=== PATIENT | male | born 1945 | race Caucasian/White ===

== ENCOUNTER 2024-07-01 15:40 | Emergency (ER) | payer OTHER, MEDICARE ==
[~2024-07-01] VITALS: Ht 182.9 cm; Wt 82.4 kg
[~2024-07-01 15:40] MED LIST: ASPIR-LOW81 MG PO; FLOMAX0.4 MG PO; GLUCOPHAGE500 MG PO; HYDROCHLOROTHIA25 MG PO; LANTUS SOL100 UNIT/1 SUB-Q; NOVOLOG100 UNIT/2 SUB-Q; SYNTHROID100 MCG PO; VITAMIN D1000 UNI1 PO
[2024-07-01] MEDS ORDERED: LISINOPRIL10 MG PO (16:52)
[2024-07-01] MEDS ORDERED: ACETAMINOPHEN 500 MG TAB PO ONE (17:15)
[2024-07-01] MEDS ORDERED: HYDROCODON-ACE1 EA10 PO (17:48)
[2024-07-01 17:56] VITALS: BP 169/86
== END 2024-07-01 17:56 | disposition home or self-care (01) ==
LOC: ED 15:40
DX: S80.12XA Contusion of left lower leg, initial encounter (principal); V89.2XXA Person injured in unspecified motor-vehicle accident, traffic, initial encounter; I10 Essential (primary) hypertension; E11.9 Type 2 diabetes mellitus without complications; E03.9 Hypothyroidism, unspecified; E78.5 Hyperlipidemia, unspecified; Z87.891 Personal history of nicotine dependence; Z91.041 Radiographic dye allergy status; Z79.82 Long term (current) use of aspirin; Z79.4 Long term (current) use of insulin; Z79.899 Other long term (current) drug therapy; Z79.890 Hormone replacement therapy
CPT/HCPCS: 73590; 99284; A9270

== ENCOUNTER 2024-07-06 14:17 | Emergency (ER) | payer OTHER, MEDICARE ==
[~2024-07-06] VITALS: Ht 182.9 cm; Wt 84.3 kg
[~2024-07-06 14:17] MED LIST changes: +HYDROCODON-ACE1 EA10 PO; +LISINOPRIL10 MG PO
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
[2024-07-06 18:15] VITALS: BP 141/70
== END 2024-07-06 18:15 | disposition home or self-care (01) ==
LOC: ED 14:17
DX: S80.12XA Contusion of left lower leg, initial encounter (principal); V49.9XXA Car occupant (driver) (passenger) injured in unspecified traffic accident, initial encounter; I10 Essential (primary) hypertension; E11.9 Type 2 diabetes mellitus without complications; E03.9 Hypothyroidism, unspecified; E78.5 Hyperlipidemia, unspecified; Z87.891 Personal history of nicotine dependence; Z91.041 Radiographic dye allergy status; Z79.82 Long term (current) use of aspirin; Z79.4 Long term (current) use of insulin; Z79.890 Hormone replacement therapy; Z79.899 Other long term (current) drug therapy
CPT/HCPCS: 10060; 73590; 93971; 99284-25

== ENCOUNTER 2025-03-19 14:29 | Day surgery (SDC) | payer OTHER ==
[2025-02-25 09:29] VITALS: BP 160/77
[~2025-03-19] VITALS: Ht 182.9 cm; Wt 81.8 kg
[2025-03-19] VITALS (9 sets, daily range): BP systolic 122–175; BP diastolic 49–63
[2025-03-19 11:08] LABS: BILIRUBIN, URINE NEGATIVE (negative); BLOOD/HGB, URINE TRACE-L (Negative); KETONE, URINE TRACE (Negative); LEUK ESTERASE, URINE NEGATIVE (negative); NITRITE, URINE NEGATIVE (negative)
[2025-03-19 11:20] LABS: EPITHELIAL CELLS, URINE 0 /lpf (0-1+); RED BLOOD CELLS, URINE 0-1 /hpf (0-5); WHITE BLOOD CELLS, URINE 0-1 /HPF (0-5)
[2025-03-19 11:21] LABS: BACTERIA, URINE NONE SEEN /hpf (negative); CASTS, URINE NONE SEEN \\lpf; COLLECTION TYPE, URINE CLEAN CATCH; CRYSTALS, URINE NONE SEEN (0-1+); REFLEX CULTURE, URINE No (No)
[2025-03-19 11:33] LABS: BASOPHILS 0.4 % (0-2); EOSINOPHILS 2.9 % (0-6); HEMATOCRIT 41.8 % (35.0-50.0); HEMOGLOBIN 14.7 g/dL (12.0-18.0); LYMPHOCYTES 27.5 % (24-44); MCH 31.4 (27-36); MCHC 35.3 g/dl (30-36); MCV 89.1 fl (81-99); NEUTROPHILS 60.2 % (39-80); PLATELET COUNT 226 K/uL (140-440); RBC 4.69 M/ul (4.3-5.7); RDW 12.8 (10.5-15.0)
[2025-03-19 11:42] LABS: ANION GAP 9.1 (7-21); BUN/CREATININE RATIO 15.51 (6.0-28.6); CALCIUM 8.6 mg/dL (8.5-10.1); CREATININE, SERUM 1.16 mg/dL (0.70-1.30); POTASSIUM 4.1 mmol/L (3.5-5.1)
--- NOTE | 2025-03-19 13:50 | NUR ---
03/19/25 1350 Oxana Fenton 1343-PATIENT ARRIVED TO PACU ON 6L MASK NONAROUSABLE RR EVEN. SR HR 60'S IVF INFUSING. GLUCOSE CHECKED 102. NO DRAINAGE TO PENIS. CABRERA CATHETER IN PLACE CBI PINK TINGED.
--- NOTE | 2025-03-19 14:20 | NUR ---
PT ARRIVES TO [facility] ROOM. REPORT RECIEVED FROM EVA ORELLANA. PT DENIES PAIN OR NAUSEA AT THIS TIME. CBI IN PLACE, PINK DRAINAGE IN CATHETER. PT A+O X4. PT AT THE BEDSIDE. PT REQUESTS WATER AND SNACKS, GIVEN. PT STATES NO FURTHER NEEDS AT THIS TIME. PT STATES SHE HAS HIS MEDICATIONS IN HER PURSE. THIS RN EDUCATES PT AND ABOUT NOT TAKING HOME MEDICATIONS WHILE STAYING IN HOSPITAL AND IMPORTANCE OF THIS TO SAFETY. THIS RN EDUCATES ON NEEDING TO TALK TO MD AND PHARMACY AND GETTING A LABEL FOR HOME MEDICATIONS IF THEY END UP BEING NEEDED. PT AND VERBALIZE UNDERSTANDING. CALL LIGHT WITHIN REACH.
[~2025-03-19 14:29] MED LIST changes: +ACETAMINOPHEN 1,000 MG/100 ML VIAL ONE; +CARBOXYMETHYLCE15 ML OU; +CEFAZOLIN SODIUM 2 GM/20 ML SYR IV SCH; +DEXTROSE 5% 1,000 ML IV PRN; +DEXTROSE 50% 50 ML SYR IV PRN; +EZETIMIBE10 MG PO; +GLUCAGON,HUMAN RECOMBINANT 1 MG/ML VIAL SUB-Q PRN; +HYDROmorphone HCL 1 MG/ML SYR IV PRN; +IBLOOD GLUCOSE TEST STRIP 1 EA TEST VI PRN; +IBLOOD GLUCOSE TEST STRIP 1 EA TEST XX PRN; +IBLOOD GLUCOSE TEST STRIP 1 EA TEST XX SCH; +Insulin Regular, Human 100 UNIT/ML ML SUB-Q SCH; +LACTATED RINGER'S 1,000 ML IV SCH; +LIDOCAINE HCL 1% 5 ML SDV INJ ONE; +LIDOCAINE HCL 2% 5 ML SDV ONE; +OMEPRAZOLE20 MG PO; +OXYCODONE/APAP 5/325 TAB PO PRN; +PRALUENT P75 MG/1 ML SQ; +SEMGLEE (Y100 UNIT/1 SUB-Q; +diphenhydrAMINE HCL 25 MG CAP PO PRN; +ePHEDrine sulfate 50 MG/ML AMP ONE; +fentaNYL citrate 100 MCG/2 ML VIAL ONE; +ondansetron HCL 4 MG/2 ML VIAL IV PRN; +ondansetron HCL 4 MG/2 ML VIAL ONE; +propofoL 200 MG/20 ML VIAL ONE
--- NOTE | 2025-03-19 15:13 | NUR ---
INTO SEE PATIENT. PERSONAL HEALTH INFORMATION REVIEWED. PATIENT LIVES IN A HOME. NO STEPS. PATIENT LIVES WITH . NO DME. DENIES ANY DIFFCULTY PAYING BILLS OR OBTAINING FOOD. NO OTHER CM NEEDS AT THIS TIME.
[2025-03-19] MEDS ORDERED: NALOXONE HCL 0.4 MG SYR IV PRN (15:15)
[2025-03-19] MEDS ORDERED: fentaNYL citrate 50 MCG/ML SDV IV PRN (15:15)
[2025-03-19] MEDS ORDERED: SEVOFLURANE 250 ML BTL INH ONE (15:42)
[2025-03-19] MEDS ORDERED: FAMOTIDINE 20 MG TAB PO ONE (16:00)
--- NOTE | 2025-03-19 16:30 | NUR ---
URINE IN CATHETER LIGHTENING, REMAINS PINK AT THIS TIME. CBI DRIP RATE SLOWED AT THIS TIME. PT STATES NO CURRENT NEEDS, CALL LIGHT WITHIN REACH.
--- NOTE | 2025-03-19 17:25 | NUR ---
THIS RN WENT IN TO PT'S ROOM TO GIVE HIM INSULIN ORDERED. UPON ENTERING ROOM, PT WAS SWALLOWING PILLS AND STATED HE ALREADY TOOK HIS OWN 2 UNITS OF NOVOLOG. PT WAS INSTRUCTED AGAIN NOT TO TAKE HIS OWN MEDICATIONS (PT AND HIS WERE PREVIOUSLY INSTRUCTED NOT TO TAKE HIS OWN MEDS WITHOUT HAVING THEM CHECKED BY PHARMACY AND SPEAKING WITH NURSE). EDUCATED PT AND HIS REGARDING RISKS OF PT TAKING HIS OWN MEDICATIONS WITHOUT STAFF KNOWLEDGE AND HOSPITAL POLICY. PT AND HIS STATED UNDERSTANDING.
--- NOTE | 2025-03-19 19:36 | NUR ---
RECEIVED REPORT FROM EVA CLEMONS. PT RESTING IN BED, SPOUSE AT BEDSIDE. EVA HUERTA DAYSHIFT CHARGE NURSE IN TO REMIND PT & SPOUSE THAT THEY ARE NOT TO TAKE OWN HOME MEDS, AND THAT THEY SHOULD TAKE HOME MEDS HOME. PT AND SPOUSE AGREED BUT REFUSED TO ALLOW BRADLEY TO LOCK UP HOME MEDS IN LOCKBOX.
--- NOTE | 2025-03-19 20:30 | NUR ---
PT RESTING COMFORTABLY IN BED. VSS. DENIES PAIN. LSC. HRR. BTA. LBM YESTERDAY. HAS CBI INFUSING AT VERY SLOW RATE-OUTPUT LIGHT PINK. RIGHT WRIST IV INFUSING LR @ 50MLS/HR. PT CURRENTLY HAS SCD'S OFF-REPORTS LEGS WERE HOT AND SWEATY AND REQUESTED A BREAK. BG AT HS 248, PT HAPPY W/ SLIDING SCALE DOSE OF 5 UNITS. PT HAS OWN CGM AND HOSPITAL BG CLOSE TO OWN READING. CALL LIGHT WITHIN REACH.
--- NOTE | 2025-03-19 22:25 | NUR ---
P AMBULATING IN HALLS W/ SBA FROM MING GUERRERO.
--- NOTE | 2025-03-19 23:11 | NUR ---
PT BACK IN BED. CBI OUTPUT FRUIT PUNCH COLORED, CBI RATE SLIGHTLY INCREASED. REPORTS URETHRAL DISCOMFORT R/T CABRERA CATH, PRN PERCOCET ADMINISTERED PER EMAR. PT DECLINED SCD'S BEING APPLIED AT THIS TIME.
--- NOTE | 2025-03-20 00:41 | NUR ---
PT RESTING COMFORTABLY. CBI RATE SLOW, OUTPUT VERY LIGHT PINK. PT READING, REPORTS NOT FEELING TIRED.
[2025-03-20 01:42] VITALS: BP 158/65
--- NOTE | 2025-03-20 01:46 | NUR ---
PUBLIC WORKS INSPECTOR OBTAINED VITALS AND I&O. ICE WATER REFILLED. PT STATES NO FURTHER NEEDS AT THIS TIME. CALL LIGHT WITHIN REACH.
[2025-03-20 01:58] VITALS: BP 158/65
--- NOTE | 2025-03-20 01:59 | NUR ---
PT STILL AWAKE, HAS NOT SLEPT. CBI CLAMPED AT THIS TIME, URINE OUTPUT MOSTLY CLEAR. NEW BAG LR HUNG, RW IV WNL.
[2025-03-20 05:40] VITALS: BP 122/46
--- NOTE | 2025-03-20 05:40 | NUR ---
CELL PLASTERER OBTAINED VITALS AND I&O. ICE WATER REFILLED. PT STATES NO FURTHER NEEDS AT THIS TIME. CALL LIGHT WITHIN REACH.
--- NOTE | 2025-03-20 06:51 | NUR ---
PT AWAKE, REPORTS MINIMAL SLEEP. CABRERA URINE OUTPUT MOSTLY CLEAR, VERY LITTLE PINK, OUTPUT AMT 3200cc.
[2025-03-20] MEDS ORDERED: CEFTRIAXONE SODIUM 1 GM in SODIUM CHLORIDE 0.9% 100 ML IV SCH (07:00)
--- NOTE | 2025-03-20 07:30 | NUR ---
RECIEVED REPORT FROM EVA THAPA. PT LYING IN BED AWAKE, STATES NO CURRENT NEEDS, CALL LIGHT WITHIN REACH.
[2025-03-20] MEDS ORDERED: TYLENOL EXTRA500 MG PO (07:58)
[2025-03-20] MEDS ORDERED: GLUCAGON EMERGEN1 MG IM (08:03)
--- NOTE | 2025-03-20 08:04 | NUR ---
MED REC COMPLETE
[2025-03-20] MEDS ORDERED: CIPRO500 MG PO (08:12)
[2025-03-20] MEDS ORDERED: OXYCODONE HCL5 MG PO ×2 (08:13→08:15)
[2025-03-20] MEDS ORDERED: CEPHALEXIN500 M1 PO (08:15)
--- NOTE | 2025-03-20 08:20 | NUR ---
PT LYING IN BED AWAKE. PT REFUSES PO MEDICATIONS D/T WANTING TO TAKE THEM AT HOME. PT STATES HE IS LOOKING FORWARD TO GOING HOME TODAY. IV IN R WRIST INFUSING ORDERED FLUIDS, IV WNL. PT CONTINUES TO REFUSE SCDs. PT DENIES PAIN, NAUSEA, AND SOB AT THIS TIME. CABRERA CATHETER REMAINS IN PLACE, URINE CLEAR/YELLOW. PT STATES NO NEEDS AT THIS TIME, CALL LIGHT WITHIIN REACH.
[2025-03-20] MEDS ORDERED: LEVOTHYROXINE SODIUM 100 MCG TAB PO SCH (09:00)
[2025-03-20] MEDS ORDERED: hydroCHLOROthiazide 25 MG TAB PO SCH (09:00)
[2025-03-20] MEDS ORDERED: lisinopriL 10 MG TAB PO SCH (09:00)
[2025-03-20 10:34] VITALS: BP 167/54
[2025-03-20 10:35] VITALS: BP 167/54
--- NOTE | 2025-03-20 10:44 | NUR ---
DISCHARGE VITAL SIGNS WNL. DISCONTINUED IV, CATH TIP INTACT. PROVIDED DICHARGE INSTRUCTIONS AND EDUCATION. ANSWERED QUESTIONS AND CONCERNS. WAS AT THE BEDSIDE. PATIENT DEMONSTRATED CATHETER CARE, ABLE TO EMPTY INTO TOILET AND VERBALIZE ABILITY TO IDENTIFY CHANGES IN URINE AND WHEN TO SEEK MEDICAL EVALUATION. ALL PATIENTS BELONGINGS WITH . PATIENT APPEARS STEADY ON FEET, DENIES ANY NEED FOR PAIN MEDICATION. STATES, "I WILL TAKE SOME WHEN I GET HOME." PROVIDED WHEELCHAIR TO THE FRONT. TRANSFERRED WELL TO CAR.
--- NOTE | 2025-03-24 08:51 | PATH ---
[facility] [address] [place], [place] [address] Signed SPECIMEN(S): A PROSTATE CHIPS SPECIMEN SOURCE: A. PROSTATE CHIPS CLINICAL HISTORY: Pre: BPH with LUTSs. Post: TURP. FINAL PATHOLOGIC DIAGNOSIS: Prostate, transurethral resection: - Prostatic acinar adenocarcinoma, see synoptic report PROSTATE GLAND: Transurethral Prostatic Resection (TURP), Enucleation Specimen (Simple or Subtotal Prostatectomy) SPECIMEN Procedure: Transurethral resection of the prostate (TURP) TUMOR Histologic Type: Acinar adenocarcinoma, conventional (usual) Histologic Grade Grade: Grade group 1 (Newhall Score 3 + 3 = 6) Intraductal Carcinoma (IDC): Not identified Treatment Effect: No known presurgical therapy TUMOR QUANTITATION Estimated Percentage of Prostate Involved by Tumor: 1 - 5% Lymphatic and / or Vascular Invasion: Not identified Perineural Invasion: Not identified ADDITIONAL FINDINGS Additional Findings: Nodular prostatic hyperplasia COMMENT: As part of [facility]' Quality Improvement Program, this case was reviewed by another member of our pathology staff. BRP MICROSCOPIC EXAMINATION: Histologic sections of all submitted blocks are examined by light microscopy. These findings, together with the gross examination, support the pathologic diagnosis. GROSS DESCRIPTION: The specimen, labeled and designated "WesleyCathy " and designated on the requisition "prostate chips," is received in formalin is a 10 g, 6.5 x 6.0 x PATIENT NAME: CHERY MISTRY NIKKI PATHOLOGY DATE OF : 45 REPORT #: [id number] PHYSICIAN: NEDA KLEIN PCP: EDI ALAS MD REPORT IS CONFIDENTIAL AND NOT TO BE RELEASED WITHOUT AUTHORIZATION [facility] [address] [place], [place] [address] Signed 1.4 cm aggregate of pink-guerin to reno rubbery soft tissue. The specimen is entirely submitted in ([id number]). FB (under the direct supervision of a pathologist) The Gross Description was prepared using a voice recognition system. The report was reviewed for accuracy; however, sound-alike word errors, addition and/or deletions may occur. If there is any question about this report, please contact Client Services. ADDITIONAL NOTES: Immunohistochemical and/or in situ hybridization studies if performed in this case included appropriate positive controls that reacted as expected. This test was developed and its performance characteristics determined by [facility]. It has not been cleared or approved by the U.S. Food and Drug Administration. The FDA has determined that such clearance or approval is not necessary. This test is used for clinical purposes. It should not be regarded as investigational or for research. [facility] is certified under the Clinical Laboratory Improvement Amendments of 1988 (CLIA) as qualified to perform high complexity clinical laboratory testing. PERFORMING LABORATORY: Technical component was performed by [facility], [address] [place] [address] (CLIA# [id number]). Professional interpretation was performed by [facility], [address] [place] [id number] (CLIA#: [id number]). Diagnostician: Bubba Varma MD Pathologist Electronically Signed 03/24/2025 Copies: ~ PATIENT NAME: CHERY MISTRY PATHOLOGY DATE OF : 45 REPORT #: [id number] PHYSICIAN: NEDA PATHOLOGY PCP: EDI ALAS MD REPORT IS CONFIDENTIAL AND NOT TO BE RELEASED WITHOUT AUTHORIZATION
== END 2025-03-20 10:35 | disposition home or self-care (01) ==
LOC: DS 14:29 → MS 15:00 → DS 03-20 10:35
PROVIDERS: ATTEND Urology
PROC: 0VB08ZZ Excision of Prostate, Via Natural or Artificial Opening Endoscopic (ICD-10-PCS; principal; 2025-03-19 12:45)
DX: N40.1 Benign prostatic hyperplasia with lower urinary tract symptoms (principal); C61 Malignant neoplasm of prostate; E11.9 Type 2 diabetes mellitus without complications
CPT/HCPCS: 00914; 36415; 51700; 80048; 81001; 85025; 88305; 94762; 94799; 96360; 96361; 96365; 96372; C1713; C1769; J0131; J0690; J0696; J1815; J2003; J2405; J2704; J3010; J7121

== ENCOUNTER 2025-03-22 22:42 | Emergency (ER) | payer OTHER ==
[~2025-03-22] VITALS: Ht 182.9 cm; Wt 81.8 kg
[~2025-03-22 22:42] MED LIST changes: -ACETAMINOPHEN 1,000 MG/100 ML VIAL ONE; -CEFAZOLIN SODIUM 2 GM/20 ML SYR IV SCH; +CEPHALEXIN500 M1 PO; +CIPRO500 MG PO; -DEXTROSE 5% 1,000 ML IV PRN; -DEXTROSE 50% 50 ML SYR IV PRN; +GLUCAGON EMERGEN1 MG IM; -GLUCAGON,HUMAN RECOMBINANT 1 MG/ML VIAL SUB-Q PRN; -HYDROmorphone HCL 1 MG/ML SYR IV PRN; -IBLOOD GLUCOSE TEST STRIP 1 EA TEST VI PRN; -IBLOOD GLUCOSE TEST STRIP 1 EA TEST XX PRN; -IBLOOD GLUCOSE TEST STRIP 1 EA TEST XX SCH; -Insulin Regular, Human 100 UNIT/ML ML SUB-Q SCH; -LACTATED RINGER'S 1,000 ML IV SCH; -LIDOCAINE HCL 1% 5 ML SDV INJ ONE; -LIDOCAINE HCL 2% 5 ML SDV ONE; +OXYCODONE HCL5 MG PO; -OXYCODONE/APAP 5/325 TAB PO PRN; +TYLENOL EXTRA500 MG PO; -diphenhydrAMINE HCL 25 MG CAP PO PRN; -ePHEDrine sulfate 50 MG/ML AMP ONE; -fentaNYL citrate 100 MCG/2 ML VIAL ONE; -ondansetron HCL 4 MG/2 ML VIAL IV PRN; -ondansetron HCL 4 MG/2 ML VIAL ONE; -propofoL 200 MG/20 ML VIAL ONE
[2025-03-22 23:33] LABS: BASOPHILS 0.3 % (0-2); EOSINOPHILS 4.3 % (0-6); HEMOGLOBIN 14.8 g/dL (12.0-18.0); LYMPHOCYTES 25.1 % (24-44); MCH 31.6 (27-36); MCHC 36.1 g/dl (30-36); MCV 87.5 fl (81-99); MONOCYTES 9.4 % (0-12); NEUTROPHILS 60.9 % (39-80); PLATELET COUNT 220 K/uL (140-440); RBC 4.69 M/ul (4.3-5.7); RDW 12.9 (10.5-15.0)
[2025-03-22] MEDS ORDERED: METOPROLOL TARTRATE 5 MG/5 ML VIAL IV ONE (23:45)
[2025-03-22 23:50] LABS: ALBUMIN 3.7 g/dL (3.4-5.0); ALBUMIN/GLOBULIN RATIO 1.03 (1.1-2.4); ANION GAP 11.7 (7-21); BILIRUBIN, TOTAL 0.9 mg/dL (0.2-1.0); BUN/CREATININE RATIO 15.05 (6.0-28.6); CALCIUM 8.8 mg/dL (8.5-10.1); CREATININE, SERUM 0.93 mg/dL (0.70-1.30); POTASSIUM 3.7 mmol/L (3.5-5.1); PROTEIN, TOTAL 7.3 g/dL (6.4-8.2)
[2025-03-23 00:04] LABS: BILIRUBIN, URINE NEGATIVE (negative); BLOOD/HGB, URINE LARGE (Negative); KETONE, URINE TRACE (Negative); LEUK ESTERASE, URINE TRACE (negative); NITRITE, URINE NEGATIVE (negative)
[2025-03-23 00:10] LABS: RED BLOOD CELLS, URINE 21-40 /hpf (0-5)
[2025-03-23 00:11] LABS: BACTERIA, URINE RARE /hpf (negative); CASTS, URINE NONE SEEN \\lpf; COLLECTION TYPE, URINE CLEAN CATCH; CRYSTALS, URINE NONE SEEN (0-1+); EPITHELIAL CELLS, URINE NONE SEEN /lpf (0-1+); REFLEX CULTURE, URINE Yes (No)
[2025-03-23 01:07] VITALS: BP 150/72
--- NOTE | 2025-03-25 07:45 | EKG ---
[facility] [address] [facility] [place] [address] Signed Normal sinus rhythm Borderline ECG When compared with ECG of 25-FEB-2025 08:34, No significant change was found Confirmed by Agustin Contreras MD ([id number]) on 03/25/2025 7:44:44 AM Electronically Signed By: AGUSTIN CONTRERAS MD 03/25/25 0745 PATIENT NAME: CHERY MISTRY NIKKI Electrocardiogram DATE OF : 45 PHYSICIAN: AGUSTIN CONTRERAS MD REPORT #: [id number] REPORT IS CONFIDENTIAL AND NOT TO BE RELEASED WITHOUT AUTHORIZATION
== END 2025-03-23 01:09 | disposition home or self-care (01) ==
LOC: ED 22:42
PROVIDERS: Internal Medicine
DX: I16.0 Hypertensive urgency (principal); I10 Essential (primary) hypertension; E11.9 Type 2 diabetes mellitus without complications; E03.9 Hypothyroidism, unspecified; E78.5 Hyperlipidemia, unspecified; Z79.82 Long term (current) use of aspirin; Z79.899 Other long term (current) drug therapy; Z91.041 Radiographic dye allergy status; Z88.8 Allergy status to other drugs, medicaments and biological substances; Z87.891 Personal history of nicotine dependence
CPT/HCPCS: 36415; 80053; 81001; 83880; 84484; 85025; 87088; 93005; 93010; 96374; 99283-25